=== PATIENT | female | born 1955 | race Caucasian/White ===

== ENCOUNTER → 2019-08-22 | Outpatient (CLI) | payer BC ==
[2019-08-22 10:39] LABS: ALBUMIN 3.6 gm/dl (3.1-4.5); ALKALINE PHOSPHATASE 62 U/L (45-117); BUN 20 mg/dl (7-24); CHLORIDE 109 mmol/L (98-107); CHOLESTEROL 158 mg/dL (<200); CREATININE 0.79 mg/dL (0.55-1.02); HDL CHOLESTEROL 65 mg/dl (40-60); LDL CHOLESTEROL 82 mg/dL (9-159); POTASSIUM 4.9 mmol/L (3.5-5.1); SGOT/AST 12 IU/L (3-35); SGPT/ALT 15 U/L (12-78); SODIUM 142 mmol/L (136-145); TRIGLYCERIDES 53 mg/dl (<150); VLDL CHOLESTEROL 11 mg/dL (6-40)
== END | disposition home or self-care (01) ==
LOC: LAB 09:59
PROVIDERS: Physician Assistant Medical
DX: E78.00 Pure hypercholesterolemia, unspecified (principal); E03.4 Atrophy of thyroid (acquired)

== ENCOUNTER 2020-05-29 16:50 | Emergency (ER) | payer BC ==
[~2020-05-29] VITALS: Ht 157.4 cm; Wt 81.6 kg
[2020-05-29 16:54] VITALS: BP 136/78
== END 2020-05-29 19:11 | disposition home or self-care (01) ==
LOC: ED 16:50
DX: S01.81XA Laceration without foreign body of other part of head, initial encounter (principal); W01.198A Fall on same level from slipping, tripping and stumbling with subsequent striking against other object, initial encounter; Y93.89 Activity, other specified; Y92.89 Other specified places as the place of occurrence of the external cause; Y99.8 Other external cause status